=== PATIENT | male | born 1990 | race Caucasian/White ===

== ENCOUNTER 2020-02-27 15:17 | Outpatient (CLI) | payer SELFPAY ==
--- NOTE | ~2020-02-27 | XR_ITS ---
EXAMINATION: XR wrist RT min 3V DATE: 02/27/2020 15:37 INDICATION: Right wrist pain. TECHNIQUE: 5 views of right wrist were obtained. COMPARISON: None. FINDINGS: Bone alignment is normal. No fracture. Joint spaces are well maintained. IMPRESSION: 1. Normal right wrist. Reviewed, dictated and finalized at location A. HOP PERFORMERS IMPRESSION: 1. Normal right wrist.
== END 2020-02-27 15:18 | disposition home or self-care (01) ==
LOC: CHSIMG 15:21
PROVIDERS: PCP Family Medicine; Visit Provider Family Medicine
DX: R29.898 Other symptoms and signs involving the musculoskeletal system (principal)
CPT/HCPCS: 73110